=== PATIENT | male | born 2000 | race Two or more races ===

== ENCOUNTER 2022-12-22 23:37 | Emergency (ER) | payer OTHER ==
[~2022-12-22] VITALS: Ht 152.4 cm; Wt 72.6 kg
[~2022-12-22 23:37] MED LIST: TYLENOL DR100 MG/ML PO
== END 2022-12-23 01:24 | disposition home or self-care (01) ==
LOC: ER 23:37 → EMR PED 23:42
DX: H10.89 Other conjunctivitis (principal)